=== PATIENT | male | born 1990 | race African-American/Black ===

== ENCOUNTER 2022-01-27 19:13 | Emergency (ER) | payer SELFPAY ==
[~2022-01-27] VITALS: Ht 190.5 cm; Wt 88.0 kg
[2022-01-28] MEDS ORDERED: ONDANSETRON 4MG ODT PO STA (00:26)
[2022-01-28 00:58] LABS: BASOPHILS % 0.7 % (0.0-2.0); EOSINOPHILS % 0.2 % (0.0-5.0); HEMATOCRIT. 41.5 % (42.0-52.0); LYMPHOCYTES % 31.1 % (20.0-50.0); MEAN CORPUSCULAR HEMOGLOBIN 32.2 pg (28.0-32.0); MEAN CORPUSCULAR VOLUME 95.5 fL (80.0-94.0); MEAN PLATELET VOLUME 7.3 fl (7.4-10.4); MONOCYTES % 7.2 % (2.0-8.0); NEUTROPHILS % 60.8 % (40.0-76.0); PLATELET 192 x1000/uL (130-400); RED BLOOD CELL COUNT 4.34 mill/uL (4.7-6.1); RED CELL DISTRIBUTION WIDTH 14.5 % (11.6-14.6)
[2022-01-28 01:06] LABS: CHLORIDE 102 mEq/L (98-107)
[2022-01-28 01:38] LABS: CLARITY URINE CLEAR (CLEAR); COLOR URINE YELLOW (YELLOW); KETONES URINE 1+ (NEGATIVE); LEUKOCYTE ESTERASE URINE NEGATIVE (NEGATIVE); NITRITE URINE NEGATIVE (NEGATIVE); OCCULT BLOOD URINE NEGATIVE (NEGATIVE); PROTEIN URINE 1+ (NEGATIVE); SPECIFIC GRAVITY URINE 1.029 (1.005-1.030)
[2022-01-28] MEDS ORDERED: ONDA4TAB50 MT (02:12)
[2022-01-28 02:27] VITALS: BP 135/74
== END 2022-01-28 02:29 | disposition home or self-care (01) ==
LOC: ER 19:13
DX: A08.4 Viral intestinal infection, unspecified (principal); R11.2 Nausea with vomiting, unspecified; R19.7 Diarrhea, unspecified; Z20.822 Contact with and (suspected) exposure to COVID-19
CPT/HCPCS: 36415; 80053; 81003; 83690; 85025; 87426; 99283; Q0162

== ENCOUNTER 2022-04-17 02:18 | Emergency (ER) | payer MEDICAID ==
[~2022-04-17] VITALS: Ht 193 cm; Wt 87.0 kg
[~2022-04-17 02:18] MED LIST: ONDA4TAB50 MT
[2022-04-17 02:29] VITALS: BP 124/79
[2022-04-17] MEDS ORDERED: KETOROLAC 60MG/2ML VIAL IM STA (04:07)
[2022-04-17] MEDS ORDERED: AMOX-494 MT (04:26)
[2022-04-17] MEDS ORDERED: IBUP-2030 MT (04:26)
== END 2022-04-17 03:30 | disposition home or self-care (01) ==
LOC: ER 02:18
DX: K02.9 Dental caries, unspecified (principal)
CPT/HCPCS: 96372; 99283; J1885

== ENCOUNTER 2023-03-05 02:19 | Emergency (ER) | payer MEDICAID ==
[~2023-03-05] VITALS: Ht 190.5 cm; Wt 83.0 kg
[~2023-03-05 02:19] MED LIST changes: +AMOX-494 MT; +IBUP-2030 MT
[2023-03-05 02:41] VITALS: O2SAT 97
[2023-03-05] MEDS ORDERED: TETANUS, DIPHTHERIA, PERTUSSIS VAC/PF 0.5ML (>10YR OLD) IM ONE (02:45)
[2023-03-05] MEDS ORDERED: SODIUM CHLORIDE 0.9% 1,000 ML IV ONE (02:45)
[2023-03-05 03:08] LABS: BASOPHILS % 0.8 % (0.0-2.0); EOSINOPHILS % 1.3 % (0.0-5.0); HEMOGLOBIN. 13.1 g/dL (14.0-18.0); LYMPHOCYTES % 32.8 % (20.0-50.0); MEAN CORPUSCULAR HEMOGLOBIN 32.6 pg (28.0-32.0); MEAN CORPUSCULAR HGB CONC 34.5 g/dL (31.0-37.0); MEAN CORPUSCULAR VOLUME 94.4 fL (80.0-94.0); MEAN PLATELET VOLUME 7.7 fl (7.4-10.4); MONOCYTES % 4.5 % (2.0-8.0); NEUTROPHILS % 60.6 % (40.0-76.0); PLATELET 194 x1000/uL (130-400); RED BLOOD CELL COUNT 4.02 mill/uL (4.7-6.1); RED CELL DISTRIBUTION WIDTH 14.9 % (11.6-14.6); WHITE BLOOD COUNT 5.5 x1000/uL (4.5-11.0)
[2023-03-05 03:16] LABS: CHLORIDE 111 mEq/L (98-107); INDEX HEMOLYSI 1 (1-3); INDEX ICTERIC 1 (1-4); INDEX LIPEMIC 1 (1-3); POTASSIUM 3.6 mEq/L (3.5-5.1); SODIUM 142 mEq/L (136-145)
[2023-03-05 03:23] LABS: ALANINE AMINOTRANSFERASE 53 IU/L (13-61); ASPARTATE AMINOTRANSFERASE 49 IU/L (15-37); BILIRUBIN TOTAL 0.4 mg/dL (0.1-1.0); CALCIUM 8.2 mg/dL (8.5-10.1); CARBON DIOXIDE 25 mEq/L (21-32); CREATININE 1.2 mg/dL (0.6-1.3); GLUCOSE 102 mg/dL (70-105); PROTEIN TOTAL 7.1 g/dL (6.0-8.3); UREA NITROGEN BLOOD 12 mg/dL (7-21)
[2023-03-05 04:39] LABS: BASOPHILS % 0.7 % (0.0-2.0); EOSINOPHILS % 0.8 % (0.0-5.0); HEMATOCRIT. 37.7 % (42.0-52.0); HEMOGLOBIN. 12.5 g/dL (14.0-18.0); MEAN CORPUSCULAR HEMOGLOBIN 31.5 pg (28.0-32.0); MEAN CORPUSCULAR HGB CONC 33.1 g/dL (31.0-37.0); MEAN CORPUSCULAR VOLUME 95.1 fL (80.0-94.0); MEAN PLATELET VOLUME 7.7 fl (7.4-10.4); MONOCYTES % 4.3 % (2.0-8.0); NEUTROPHILS % 66.2 % (40.0-76.0); PLATELET 201 x1000/uL (130-400); RED BLOOD CELL COUNT 3.96 mill/uL (4.7-6.1); RED CELL DISTRIBUTION WIDTH 14.9 % (11.6-14.6); WHITE BLOOD COUNT 7.6 x1000/uL (4.5-11.0)
[2023-03-05] MEDS ORDERED: KETOROLAC 15MG/ML VIAL IV ONE (04:45)
[2023-03-05] MEDS ORDERED: KETOROLAC 60MG/2ML VIAL IM NR (05:00)
[2023-03-05] MEDS ORDERED: TOPUD PO (06:54)
[2023-03-05 09:23] VITALS: BP 105/52; PULSE 75; RESP 16; TEMP 96.7
== END 2023-03-05 09:52 | disposition home or self-care (01) ==
LOC: ER 02:19
DX: S00.83XA Contusion of other part of head, initial encounter (principal); F10.129 Alcohol abuse with intoxication, unspecified; Y08.89XA Assault by other specified means, initial encounter; Y93.89 Activity, other specified; Y92.89 Other specified places as the place of occurrence of the external cause; Y99.8 Other external cause status; Y90.6 Blood alcohol level of 120-199 mg/100 ml
CPT/HCPCS: 80053; 80320; 83690; 85025; 86850; 86900; 86901; 36415; 71045; 72170; 70450; 72125; 90715; 90471; 96360; 96372; 99285; J1885; J7030; G0480

== ENCOUNTER 2023-05-11 05:06 | Emergency (ER) | payer MEDICAID ==
[~2023-05-11] VITALS: Ht 190.5 cm; Wt 90.0 kg
[~2023-05-11 05:06] MED LIST changes: +TOPUD PO
[2023-05-11 05:10] VITALS: O2SAT 100
[2023-05-11] MEDS ORDERED: ACETAMINOPHEN 325MG TABLET PO ONE (08:15)
[2023-05-11] MEDS ORDERED: IBUPROFEN 400MG TABLET PO SCH (08:15)
[2023-05-11] MEDS ORDERED: IBUPROFEN 800MG TABLET PO ONE (08:15)
[2023-05-11 08:36] VITALS: TEMP 98.2
[2023-05-11] MEDS ORDERED: IBUP-2030 MT (09:30)
[2023-05-11 10:06] VITALS: BP 118/84; PULSE 78; RESP 20
== END 2023-05-11 10:13 ==
LOC: ER 05:19
DX: M25.511 Pain in right shoulder (principal); M79.641 Pain in right hand; V49.00XA Driver injured in collision with unspecified motor vehicles in nontraffic accident, initial encounter; Y93.89 Activity, other specified; Y92.89 Other specified places as the place of occurrence of the external cause; Y99.8 Other external cause status
CPT/HCPCS: 73030; 73060; 73130; 99284

== ENCOUNTER 2023-08-08 15:27 | Emergency (ER) | payer MEDICAID ==
[~2023-08-08] VITALS: Ht 193 cm; Wt 84.0 kg
[2023-08-08 15:35] VITALS: O2SAT 96
[2023-08-08] MEDS: TETANUS, DIPHTHERIA, PERTUSSIS VAC/PF 0.5ML (>10YR OLD) IM ONE (21:51)
[2023-08-08] MEDS: BACITRACIN/POLYMYXIN B SULFATE OINT 15GM TOP ONE (21:55)
[2023-08-08] MEDS: IBUPROFEN 400MG TABLET PO ONE (21:56)
[2023-08-08] MEDS: ACETAMINOPHEN 325MG TABLET PO ONE (21:56)
[2023-08-08] MEDS ORDERED: ACET-2708 MT (22:06)
[2023-08-08 22:17] VITALS: BP 120/72; PULSE 78; RESP 20; TEMP 98.8
== END 2023-08-08 22:20 | disposition home or self-care (01) ==
LOC: ER 15:27
DX: S52.91XA Unspecified fracture of right forearm, initial encounter for closed fracture (principal); S00.211A Abrasion of right eyelid and periocular area, initial encounter; S61.401A Unspecified open wound of right hand, initial encounter; W01.0XXA Fall on same level from slipping, tripping and stumbling without subsequent striking against object, initial encounter; Y93.89 Activity, other specified; Y92.89 Other specified places as the place of occurrence of the external cause; Y99.8 Other external cause status
CPT/HCPCS: 73110; 73130; 70450; 70486; 72125; 90715; 29125; 90471; 99285; Z7610 ×3

== ENCOUNTER 2024-02-10 03:19 | Emergency (ER) | payer MEDICAID ==
[~2024-02-10] VITALS: Ht 182.9 cm; Wt 90.0 kg
[~2024-02-10 03:19] MED LIST changes: +ACET-2708 MT
[2024-02-10 03:40] VITALS: PULSE 98; RESP 20; O2SAT 99
[2024-02-10] MEDS ORDERED: SODIUM CHLORIDE 0.9% 1,000 ML IV ONE (03:45)
[2024-02-10] MEDS ORDERED: MORPHINE SULFATE 4 MG/ML INJ (FOR IV/IM USE) IV STA (03:45)
[2024-02-10] MEDS ORDERED: ONDANSETRON HCL 4MG/2ML INJ IV STA (03:45)
[2024-02-10 03:52] VITALS: O2SAT 100
[2024-02-10 04:00] VITALS: PULSE 93
[2024-02-10] MEDS ORDERED: ONDANSETRON HCL 4MG/2ML INJ IV NR (04:00)
[2024-02-10] MEDS ORDERED: MORPHINE SULFATE 10 MG/ML INJ (NOT FOR IM USE) IV NR (04:00)
[2024-02-10] MEDS: MIDAZOLAM 100MG/100ML PMX 100 ML IV STA ×2 (04:00)
[2024-02-10 04:04] VITALS: BP 145/74; RESP 20; O2SAT 92
[2024-02-10] MEDS: PROPOFOL 10MG/ML 100ML 100 ML IV SCH (04:04)
[2024-02-10 04:06] LABS: CHLORIDE 106 mEq/L (98-107); POTASSIUM 2.9 mEq/L (3.5-5.1); SODIUM 138 mEq/L (136-145)
[2024-02-10 04:07] LABS: CARBON DIOXIDE 22 mEq/L (21-32)
[2024-02-10 04:08] LABS: CALCIUM 9.4 mg/dL (8.7-10.4)
[2024-02-10 04:12] LABS: CREATININE 1.1 mg/dL (0.6-1.3)
[2024-02-10 04:13] LABS: GLUCOSE 99 mg/dL (70-105); UREA NITROGEN BLOOD 11 mg/dL (9-23)
== END 2024-02-10 04:15 | disposition short-term general hospital (02) ==
LOC: ER 03:19
DX: S00.11XA Contusion of right eyelid and periocular area, initial encounter (principal); S40.212A Abrasion of left shoulder, initial encounter; J96.01 Acute respiratory failure with hypoxia; R41.82 Altered mental status, unspecified; Z79.899 Other long term (current) drug therapy
CPT/HCPCS: 80048; 36415; 71045; 94003; 31500; 99291; J2250; J2704; J7030; Z7610 ×4